=== PATIENT | female | born 1995 | race Caucasian/White ===

== ENCOUNTER 2022-03-08 11:36 | Emergency (ER) | payer SELFPAY ==
[2022-03-08] MEDS ORDERED: Ketorolac Tromethamine 30 MG/ML VIAL ONE (14:30)
[2022-03-08] MEDS ORDERED: Dexamethasone 4 mg/ml Vial ONE (14:30)
[2022-03-08 15:03] LABS: MONO NEGATIVE CONTROL ZONE White (Negative) (White); MONO POSITIVE CONTROL Pink Line (Positive) (PINK/RED); Mononucleosis NEGATIVE (NEGATIVE)
== END 2022-03-08 15:50 | disposition home or self-care (01) ==
LOC: ERS 11:36
DX: J03.80 Acute tonsillitis due to other specified organisms (principal); Z87.891 Personal history of nicotine dependence
CPT/HCPCS: 36416; 86308; 87081; 87430; 87804; 96372; 99283; J1100; J1885

== ENCOUNTER 2022-11-08 12:00 | Emergency (ER) | payer SELFPAY ==
[2022-11-08 13:13] LABS: #Basophils 0.1 thou/uL (0.0-0.2); #Eosinphils 0.2 thou/uL (0.0-0.7); #Monocytes 0.5 thou/uL (0.11-0.59); %Eosinophils 2.1 % (0.0-10.0); %Lymphocytes 28.2 % (21.0-51.0); %Monocytes 6.4 % (0.0-10.0); %Neutrophils 62.1 % (42.0-75.0); Hemoglobin 13.8 g/dL (12.0-16.0); Mean Corpuscular HGB CONC 32.5 g/dL (32.0-36.0); Mean Corpuscular Volume 92.2 fl (78.0-98.0); Mean Platelet Volume 9.2 fL (7.4-10.4); Platelet Count 278 10x3/uL (130-400); RBC Distribution Width 12.8 % (11.5-14.5); White Blood Cell (WBC) Count 8.1 10x3/uL (4.8-10.8)
[2022-11-08 13:46] LABS: ALT (SGPT) 17 U/L (8-55); AST (SGOT) 15 U/L (5-34); Albumin 4.3 g/dL (3.5-5.0); Alkaline Phosphatase 60 U/L (40-110); Anion Gap 11 mmol/L (10-20); BUN (Urea Nitrogen) 16 mg/dL (7.0-18.7); Bilirubin, Total 0.5 mg/dL (0.2-1.2); Calc. Creatinine Clearance 0 mL/min (70-130); Calcium 9.6 mg/dL (7.8-10.44); Carbon Dioxide 24 mmol/L (22-29); Chloride 111 mmol/L (98-107); Estimated GFR 101; Globulin 3.3 g/dL (2.4-3.5); Glucose 102 mg/dL (70-105); Protein, Total 7.6 g/dL (6.0-8.3); Sodium 142 mmol/L (136-145)
[2022-11-08 14:13] LABS: Bacteria/HPF None Seen HPF (None Seen); Bilirubin Negative (Negative); Blood, Urine Negative (Negative); CAUTI Indications for Culture Pelvic or flank pain; Clarity Clear (Clear); Glucose, Urine (Dipstick) Normal (Negative); Ketone, Urine Negative (Negative); Leukocyte Negative Leu/uL (Negative); Nitrite Negative (Negative); Protein, Urine (Dipstick) Negative (Neg-Trace); RBC/HPF 0-3 HPF (0-3); Specific Gravity, Urine 1.027 (1.002-1.036); Urobilinogen Normal mg/dL (Less than 2); WBC/HPF 0-3 HPF (0-3)
[2022-11-08 14:15] LABS: Urine Culture Reflex No No
[2022-11-08] MEDS ORDERED: Ketorolac Tromethamine 30 MG/ML VIAL ONE (15:28)
[2022-11-08] MEDS ORDERED: Ondansetron PF 4 MG/2 ML Vial ONE (15:28)
[2022-11-08 16:36] LABS: BHCG - Serum Negative (NEGATIVE); Pregs Control Background? CLEAR/WHITE (CLR/WHITE); Pregs Control Bar Appear? YES (CONTROL BAR)
== END 2022-11-08 17:50 | disposition home or self-care (01) ==
LOC: ERS 12:00
DX: M54.50 Low back pain, unspecified (principal); Z87.891 Personal history of nicotine dependence
CPT/HCPCS: 36415; 74176; 80053; 81001; 84703; 85025; 96361; 96374; 96375; J1885; J2405

== ENCOUNTER 2023-01-23 13:05 | Emergency (ER) | payer SELFPAY ==
[2023-01-23] MEDS ORDERED: Ondansetron ODT 4 MG TAB ONE (14:50)
[2023-01-23] MEDS ORDERED: Ketorolac Tromethamine 30 MG/ML VIAL ONE (14:50)
== END 2023-01-23 16:19 | disposition home or self-care (01) ==
LOC: ERS 13:05
DX: S06.0X0A Concussion without loss of consciousness, initial encounter (principal); S00.83XA Contusion of other part of head, initial encounter; W22.09XA Striking against other stationary object, initial encounter; Z87.891 Personal history of nicotine dependence
CPT/HCPCS: 70450; 70486; 72125; 96372; J1885; Q0162

== ENCOUNTER 2025-02-05 00:16 | Emergency (ER) | payer SELFPAY | END 2025-02-05 00:23 | LOC: ERS 00:16 | DX: Z02.89 Encounter for other administrative examinations (principal); S60.512A Abrasion of left hand, initial encounter; W26.8XXA Contact with other sharp object(s), not elsewhere classified, initial encounter | CPT/HCPCS: 99282 ==